=== PATIENT | female | born 1955 | race Caucasian/White ===

== ENCOUNTER 2023-06-09 13:02 | Outpatient (OUT) | payer MEDICARE, SELFPAY ==
[2023-06-09 13:36] LABS: Basophils Percent Auto 0.3 % (0.2-2.0); Eosinophils Absolute Auto 0.1 10^3/uL (0.0-0.7); Eosinophils Percent Auto 0.7 % (0.9-7.0); Hematocrit 34.6 % (36.0-48.0); Hemoglobin 10.5 g/dL (12.0-16.0); Immature Granulocytes Abs Auto 0.09 10^3/uL (0.00-0.03); Immature Granulocytes Pct Auto 0.9 % (0.0-0.5); Lymphocytes Absolute Auto 2.8 10^3/uL (1.2-3.8); Lymphocytes Percent Auto 27.6 % (20.5-60.0); Mean Corpuscular HGB Conc 30.3 g/dL (29.9-35.2); Mean Corpuscular Hemoglobin 26.6 pg (26.7-34.0); Mean Corpuscular Volume 87.8 fL (81.0-99.0); Mean Platelet Volume 9.6 fL (9.5-13.5); Monocytes Absolute Auto 0.6 10^3/uL (0.3-0.8); Monocytes Percent Auto 6.2 % (1.7-12.0); Neutrophils Absolute Auto 6.4 10^3/uL (1.4-6.5); Neutrophils Percent Auto 64.3 % (43.0-75.0); Platelet Count 370 10^3/uL (150-450); Red Blood Count 3.94 10^6/uL (4.20-5.40); Red Cell Distribution Width 16.3 % (11.0-15.0)
[2023-06-09 13:52] LABS: Microalbumin Urine Random 2.6 mg/dL (<=30.0)
[2023-06-09 13:56] LABS: Estimated Average Glucose 154 mg/dL
[2023-06-09 16:32] LABS: Anion Gap 11.9; Carbon Dioxide 29.2 mmol/L (21.0-32.0); Chloride 102 mmol/L (98-107); Glucose 106 mg/dL (74-106); Potassium 4.1 mmol/L (3.5-5.1); Sodium 139 mmol/L (136-145)
[2023-06-09 16:33] LABS: Alanine Aminotransferase 25 U/L (14-59); Albumin Globulin Ratio 1.1; Albumin Level 3.8 g/dL (3.4-5.0); Alkaline Phosphatase 41 U/L (46-116); Aspartate Amino Transferase 16 U/L (15-37); BUN Creatinine Ratio 20.6; Bilirubin Direct 0.1 mg/dL (0.0-0.2); Bilirubin Total 0.2 mg/dL (0.2-1.0); Calcium 9.2 mg/dL (8.5-10.1); Cholesterol 201 mg/dL (<=200); Estimated GFR (African America 49 (>=60); Estimated GFR (Non-African Ame 40 (>=60); Globulin 3.5 g/dL; Total Protein 7.3 g/dL (6.4-8.2); Triglycerides 515 mg/dL (<=150)
[2023-06-09 16:34] LABS: Chol HDL Ratio 6.1; HDL Cholesterol 33 mg/dL (40-60); LDL Cholesterol Direct 89 mg/dL
== END 2023-06-09 13:03 | disposition home or self-care (01) ==
LOC: LAB 13:06
PROVIDERS: PCP Family Medicine; Visit Provider Family Medicine
DX: E11.65 Type 2 diabetes mellitus with hyperglycemia (principal); I10 Essential (primary) hypertension; Z79.899 Other long term (current) drug therapy; E78.5 Hyperlipidemia, unspecified
CPT/HCPCS: 36415; 80048; 80061; 80076; 82043; 83036; 83721; 85025

== ENCOUNTER 2023-12-17 11:26 | Outpatient (OUT) | payer MEDICARE, SELFPAY ==
--- OUTSIDE RECORDS SUMMARY | 2023-12-17 11:46 | XMS_ITS | CCD ---
Author Organization [facility] Care Team Providers Care Wine Bottle Inspector Name Role Phone ANITHA, DR AMRIK Carrillo Admitting Unavailable NADERER, DR AMRIK Carrillo Attending Unavailable NADERER, DR AMRIK Carrillo Primary Care Unavailable NADERER, DR AMRIK Carrillo Consulting Unavailable JOHN, LAZARO Admitting Unavailable JOHN, LAZARO Attending Unavailable NADERER, DR AMRIK Carrillo Primary Care Unavailable AICHHOLZ, CERTIFIED CODING SPECIALIST LUC Admitting Unavailable AICHHOLZ, SHIV HOLLOWAYA Attending Unavailable NADERER, DR AMRIK Carrillo Primary Care Unavailable AICHHOLZ, CERTIFIED CODING SPECIALIST LUC Consulting Unavailable ZIEBER, DR SABRINA Chambers Consulting Unavailable AICHHOLZ, CERTIFIED CODING SPECIALIST LUC Admitting Unavailable AICHHOLZ, SHIV HOLLOWAYA Attending Unavailable NADERER, DR AMRIK Carrillo Primary Care Unavailable AICHHOLZ, SHIV LUC Consulting Unavailable JOHN, LAZARO Admitting Unavailable JOHN, LAZARO Attending Unavailable NADERER, DR AMRIK Carrillo Primary Care Unavailable JOHN, LAZARO Consulting Unavailable NADERER, DR AMRIK Carrillo Admitting Unavailable NADERER, DR AMRIK Carrillo Attending Unavailable NADERER, DR AMRIK Carrillo Primary Care Unavailable BENT, DR JULIO Presley Consulting Unavailable NADERER, DR AMRIK Carrillo Consulting Unavailable NADERER, AMRIK Attending Unavailable SILVER ESTRADA Attending Unavailable SILVER ESTRADA Referring Unavailable SILVER ESTRADA Attending Unavailable Problems Active Problems Problem Classification Problem Date Documented Da te Episodic/Chronic Diabetes mellitus with complications (4 sources) Type 2 diabetes mellitus with hyperglycemia; Translations: [TYPE 2 DM W/HYPERGLYCEMIA] Onset: 11-27-2021 Chronic Fracture of lower limb (5 sources) Displaced unspecified fracture of right great toe, initial encounter for closed fracture; Translations: [Nondisplaced fracture of proximal phalanx of right great toe, initial encounter for closed fracture] Onset: 11-19-2021 Episodic Other screening for suspected conditions (not mental disorders or infectious disease) (4 sources) Encounter for screening mammogram for malignant neoplasm of breast; Translations: [ENC SCR MAMMO MALIG NEOPLASM BREAST] Onset: 03-18-2022 Episodic Residual codes; unclassified (1 source) Family history of malignant neoplasm of other genital organs; Translations: [FAM HX MALIG NEOPLSM OTH GENIT ORGN] Onset: 03-23-2022 Episodic Past or Other Problems Problem Classification Problem Date Documented Da te Episodic/Chronic Deficiency and other anemia (1 source) Other iron deficiency anemias; Translations: [OTHER IRON DEFICIENCY ANEMIAS] Onset: 12-02-2021 Episodic Other connective tissue disease (4 sources) Pain in right foot; Translations: [PAIN IN RIGHT FOOT] Onset: 11-14-2021 Episodic Results Test Name Value Interpretation Reference Range Facil ity MG MAMM SCREEN 3D TOMASZ CADon 03-18-2022 MG MAMM SCREEN 3D TOMASZ CAD Patient: TONY LARA Exam Date: 03/18/2022 : 1955 Gender:F Ordering : DR AMRIK WELSH . Admission #: [id number] Family : Order #: [id number] CLICK HERE TO VIEW EXAM RADIOLOGY REPORT PROCEDURE: MAMMOGRAM SCREENING 3D BILATERAL CAD COMPARISON: MG MAMM TOMASZ SCRN W CAD DIG, 12/13/2014. MG MAMM SCREEN TOMASZ W CAD, 02/17/2017. INDICATIONS: Screening mammography Calculator Name NCI Breast Cancer Risk Assessment Tool 5 Year Breast Cancer Risk 1.60% Lifetime Breast Cancer Risk 5.40% Personal Breast Cancer No Personal Ovarian Cancer No Treatments None Family Cancers Mother with uterine cancer at age 44. LOCATION: [facility] BREAST COMPOSITION: Scattered areas fibroglandular density. FINDINGS: DIAGNOSTIC CATEGORY 1--NEGATIVE. NO CHANGE FROM COMPARISON ASSESSMENT. Scattered benign-appearing calcifications are present. RIGHT BREAST: No significant suspicious finding. LEFT BREAST: No significant suspicious finding. RECOMMENDATIONS: ROUTINE MAMMOGRAM AND CLINICAL EVALUATION IN 12 MONTHS. PLEASE NOTE: A NORMAL MAMMOGRAM DOES NOT EXCLUDE THE POSSIBILITY OF BREAST CANCER. A CLINICALLY SUSPICIOUS PALPABLE LUMP SHOULD BE BIOPSIED. Dictated by: Julio Fisher MD on 03/19/2022 at 07:21 Approved by: Julio Fisher MD on 03/19/2022 at 07:23 Normal [facility] CBC AUTO DIFFon 11-27-2021 BASO # 0.1 103/ul Normal 0.0-0.1 [facility] Comment on above: Performed By: #### C BC #### [facility] [address] [place] [address] Dr. Adrián Gregg Basophils/100 WBC (Bld) 0.9 % Normal 0.2-2.0 [facility] Comment on above: Performed By: #### C BC #### [facility] [address] [place] [address] Dr. Adrián Gregg EO # 0.1 103/ul Normal 0.0-0.7 [facility] Comment on above: Performed By: #### C BC #### [facility] [address] [place] [address] Dr. Adrián Gregg Eosinophils/100 WBC (Bld) 0.9 % Normal 0.9-7.0 [facility] Comment on above: Performed By: #### C BC #### [facility] [address] [place] [address] Dr. Adrián Gregg Erythrocyte distribution width (RBC) [Ratio] 17.5 % Critically high 11.0-15.0 [facility] Comment on above: Performed By: #### C BC #### [facility] [address] [place] [address] Dr. Adrián Gregg Hematocrit (Bld) [Volume fraction] 31.9 % Critically low 36.0-48.0 [facility] Comment on above: Performed By: #### C BC #### [facility] [address] [place] [address] Dr. Adrián Gregg Hemoglobin (Bld) [Mass/Vol] 9.5 g/dL Critically low 12.0-16.0 [facility] Comment on above: Performed By: #### C BC #### [facility] [address] [place] [address] Dr. Adrián Gregg IG # 0.02 10e3/ul Normal 0.00-0.03 [facility] Comment on above: Performed By: #### C BC #### [facility] [address] [place] [address] Dr. Adrián Gregg IG % 0.3 % Normal 0.0-0.5 [facility] Comment on above: Performed By: #### C BC #### [facility] [address] [place] [address] Dr. Adrián Gregg LYMPH # 1.7 103/ul Normal 1.2-3.8 [facility] Comment on above: Performed By: #### C BC #### [facility] [address] [place] [address] Dr. Adrián Gregg Lymphocytes/100 WBC (Bld) 24.2 % Normal 20.5-60.0 [facility] Comment on above: Performed By: #### C BC #### [facility] [address] [place] [address] Dr. Adrián Gregg MANUAL DIFF REQ NO Normal [facility] Comment on above: Performed By: #### C BC #### [facility] [address] [place] [address] Dr. Adrián Gregg MCH (RBC) [Entitic mass] 23.6 pg Critically low 26.7-34.0 [facility] Comment on above: Performed By: #### C BC #### [facility] [address] [place] [address] Dr. Adrián Gregg MCHC (RBC) [Mass/Vol] 29.8 g/dL Critically low 29.9-35.2 [facility] Comment on above: Performed By: #### C BC #### [facility] [address] [place] [address] Dr. Adrián Gregg MCV (RBC) [Entitic vol] 79.4 fL Critically low 81.0-99.0 [facility] Comment on above: Performed By: #### C BC #### [facility] [address] [place] [address] Dr. Adrián Gregg MONO # 0.4 103/ul Normal 0.3-0.8 [facility] Comment on above: Performed By: #### C BC #### [facility] [address] [place] [address] Dr. Adrián Gregg Monocytes/100 WBC (Bld) 5.1 % Normal 1.7-12.0 [facility] Comment on above: Performed By: #### C BC #### [facility] [address] [place] [address] Dr. Adrián Gregg NEUT # 4.7 103/ul Normal 1.4-6.5 [facility] Comment on above: Performed By: #### C BC #### [facility] [address] [address] [address] Adrián Gregg Neutrophils/100 WBC (Bld) 68.6 % Normal 43.0-75.0 [facility] Comment on above: Performed By: #### C BC #### [facility] [address] [place] [address] Dr. Adrián Gregg Platelet mean volume (Bld) [Entitic vol] 10.4 fL Normal 9.5-13.5 [facility] Comment on above: Performed By: #### C BC #### [facility] [address] [place] [address] Dr. Adrián Gregg PLT 358 103/ul Normal 150-450 [facility] Comment on above: Performed By: #### C BC #### [facility] [address] [address] [address] Adrián Gregg RBC 4.02 106/ul Critically low 4.20-5.40 [facility] Comment on above: Performed By: #### C BC #### [facility] [address] [place] [address] Dr. Adrián Gregg WBC 6.8 103/ul Normal 4.0-11.0 [facility] Comment on above: Performed By: #### C BC #### [facility] [address] [place] [address] Dr. Adrián Gregg FERRITINon 11-27-2021 Ferritin [Mass/Vol] 32.0 ng/mL Normal 8.0-252.0 [facility] Comment on above: Performed By: #### F ERR, IRON #### [facility] [address] [place] [address] Dr. Adrián Gregg GLYCOHEMOGLOBIN A1Con 2021 ADA RECOMMENDATION SEE BELOW Normal [facility] Comment on above: Result Comment: ADA RECOMMENDED LIMIT 4.0 - 6.0 ADA THERAPEUTIC TARGET < 7.0 ACTION SUGGESTED > 7.0 Performed By: #### A 1C ####[facility] [address] [id number]. Adrián Gregg Glucose [Mass/Vol] 151 mg/dL Normal [facility] Comment on above: Performed By: #### A 1C ####[facility] [address] [id number] Gregg HbA1c (Bld) [Mass fraction] 6.9 % Critically high 4.5-6.2 [facility] Comment on above: Performed By: #### A 1C ####[facility] [address] [id number]. Adrián Gregg IRONon 11-27-2021 Iron [Mass/Vol] 31.0 ug/dL Critically low 50.0-170.0 [facility] Comment on above: Performed By: #### F ERR, IRON #### [facility] [address] [address] [address] Adrián Gregg LIPID PROFILEon 11-27-2021 CHOL-HDL RATIO NORM SEE BELOW Normal [facility] Comment on above: Result Comment: 3.3 - 4.4 LOW RISK 4.4 - 7.1 AVERAGE RISK 7.1 - 11.0 MODERATE RISK >11.0 HIGH RISK Performed By: #### C MP, LIPID #### [facility] [address] [address] [address] Adrián Gregg Cholesterol [Mass/Vol] 157 mg/dL Normal <=200 [facility] Comment on above: Performed By: #### C MP, LIPID #### [facility] [address] [address] [address] Adrián Gregg Cholesterol in HDL [Mass/Vol] 24 mg/dL Critically low 40-60 [facility] Comment on above: Performed By: #### C MP, LIPID #### [facility] [address] [address] [address] Adrián Gregg Cholesterol in LDL [Mass/Vol] 58.8 mg/dL Normal [facility] Comment on above: Performed By: #### C MP, LIPID #### [facility] [id number] Adrián Gregg Cholesterol.total/Cho lesterol in HDL [Mass ratio] 6.5 {ratio} Normal [facility] Comment on above: Performed By: #### C MP, LIPID #### [facility] [address] [address] [address] Adrián Gregg HDL NORMAL > or = 60 mg/dl - LOW CARDIOVASCULAR RISK <40 mg/dl - HIGH CARDIOVASCULAR RISK Normal [facility] Comment on above: Performed By: #### C MP, LIPID #### [facility] [address] [address] [address] Adrián Gregg LDL CALC NORMAL SEE BELOW Normal [facility] Comment on above: Result Comment: <100 mg/dl OPTIMAL 100 - 129 mg/dl NEAR OR ABOVE OPTIMAL 130 - 159 mg/dl BORDERLINE HIGH 160 - 189 mg/dl HIGH >190 mg/dl VERY HIGH Performed By: #### C MP, LIPID #### [facility] [address] [address] [address] Adrián Gregg Triglyceride [Mass/Vol] 371 mg/dL Critically high <=150 [facility] Comment on above: Performed By: #### C MP, LIPID #### [facility] [address] [place], [place] [address] Dr. Adrián Gregg VLDL CALC 74.2 mg/dL Normal [facility] Comment on above: Performed By: #### C MP, LIPID #### [facility] [id number] Adrián Gregg MICROALBUMIN, RAND URon 11-09 mALB 9.7 mg/L Normal <=30.0 [facility] Comment on above: Performed By: #### M ALBR ####[facility] [address] [place], [place] [address]SrDr. Adrián Gregg PROF 14(COMP METB)on 022 Albumin [Mass/Vol] 3.8 g/dL Normal 3.4-5.[address] [facility] Comment on above: Performed By: #### C MP, LIPID #### [facility] [address] [address] [address] Adrián Gregg Albumin/Globulin [Mass ratio] 1.2 {ratio} Normal [facility] Comment on above: Performed By: #### C MP, LIPID #### [facility] [address] [address] [address] Adrián Gregg ALP [Catalytic activity/Vol] 47 U/L Normal 46-116 [facility] Comment on above: Performed By: #### C MP, LIPID #### [facility] [address] [address] [address] Adrián Gregg ALT [Catalytic activity/Vol] 17 U/L Normal 14-59 [facility] Comment on above: Performed By: #### C MP, LIPID #### [facility] [address] [address] [address] Adrián Gregg Anion gap [Moles/Vol] 12.3 mmol/L Normal [facility] Comment on above: Performed By: #### C MP, LIPID #### [facility] [address] [address] [address] Adrián Gregg AST [Catalytic activity/Vol] 17 U/L Normal 15-37 [facility] Comment on above: Performed By: #### C MP, LIPID #### [facility] [address] [address] [address] Adrián Gregg Bilirubin [Mass/Vol] 0.3 mg/dL Normal 0.2-1.0 [facility] Comment on above: Performed By: #### C MP, LIPID #### [facility] [address] [address] [address] Adrián Gregg Calcium [Mass/Vol] 9.1 mg/dL Normal 8.5-10.[address] [facility] Comment on above: Performed By: #### C MP, LIPID #### [facility] [address] [address] [address] Adrián Gregg Chloride [Moles/Vol] 107 mmol/L Normal 98-107 [facility] Comment on above: Performed By: #### C MP, LIPID #### [facility] [address] [address] [address] Adrián Gregg CO2 [Moles/Vol] 26.7 mmol/L Normal 21.0-32.0 [facility] Comment on above: Performed By: #### C MP, LIPID #### [facility] [address] [address] [address] Adrián Gregg Creatinine [Mass/Vol] 1.09 mg/dL Critically high 0.55-1.02 [facility] Comment on above: Performed By: #### C MP, LIPID #### [facility] [address] [address] [address] Adrián Gregg EGFR-AF MACANESE >60 Normal >=60 [facility] Comment on above: Performed By: #### C MP, LIPID #### [facility] [address] [address] [address] Adrián Gregg EGFR-NON AF MACANESE 50 mL/min/1.73m2 Critically low >=60 [facility] Comment on above: Performed By: #### C MP, LIPID #### [facility] [address] [address] [address] Adrián Gregg Globulin (S) [Mass/Vol] 3.1 g/dL Normal [facility] Comment on above: Performed By: #### C MP, LIPID #### [facility] [address] [address] [address] Adrián Gregg Glucose [Mass/Vol] 113 mg/dL Critically high 74-106 T [facility] Comment on above: Performed By: #### C MP, LIPID #### [facility] [address] [address] [address] Adrián Gregg Potassium [Moles/Vol] 4.0 mmol/L Normal 3.5-5.1 [facility] Comment on above: Performed By: #### C MP, LIPID #### [facility] [address] [address] [address] Adrián Gregg Protein [Mass/Vol] 6.9 g/dL Normal 6.4-8.[address] [facility] Comment on above: Performed By: #### C MP, LIPID #### [facility] [address] [address] [address] Adrián Gregg Sodium [Moles/Vol] 142 mmol/L Normal 136-[address] [facility] Comment on above: Performed By: #### C MP, LIPID #### [facility] [address] [address] [address] Adrián Gregg Urea nitrogen [Mass/Vol] 13.0 mg/dL Normal 7.0-18.0 [facility] Comment on above: Performed By: #### C MP, LIPID #### [facility] [address] [address] [address] Adrián Gregg Urea nitrogen/Creatinine [Mass ratio] 11.9 mg/mg Normal [facility] Comment on above: Performed By: #### C MP, LIPID #### [facility] [address] [address] [address] Adrián Gregg UA RANDOM W/MICROSCOPICon BACTERIA TRACE Abnormal NONE SEEN [facility] Comment on above: Performed By: #### U AMIC ####[facility] [address] [address]DrOliva Gregg Bilirubin Ql (U) Negative Normal NEGATIVE [facility] Comment on above: Performed By: #### U AMIC ####[facility] [address] [id number] Gregg CAST NONE SEEN Normal NONE SEEN [facility] Comment on above: Performed By: #### U AMIC ####[facility] [address] [address]Dr. Adrián Gregg Clarity (U) CLEAR Normal CLEAR [facility] Comment on above: Performed By: #### U AMIC ####[facility] [address] [address]DrOliva Gregg Color (U) LT. YELLOW Normal YELLOW [facility] Comment on above: Performed By: #### U AMIC ####[facility] [address] [address]DrOliva Gregg Crystals LM Nom (Urine sed) NONE SEEN Normal NONE SEEN [facility] Comment on above: Performed By: #### U AMIC ####[facility] [address] [address]Dr. Adrián Gregg Epithelial cells LM Ql (Urine sed) MODERATE Abnormal NONE SEEN /RARE [facility] Comment on above: Performed By: #### U AMIC ####[facility] [address] [address]Dr. Adrián Gregg Glucose Ql (U) Negative Normal NEGATIVE [facility] Comment on above: Performed By: #### U AMIC ####[facility] [address] [address]Dr. Adrián Gregg Hemoglobin Ql (U) LARGE Abnormal NEGATIVE [facility] Comment on above: Performed By: #### U AMIC ####[facility] [address] [place], [place] [address]Dr. Adrián Gregg Ketones Ql (U) Negative Normal NEGATIVE [facility] Comment on above: Performed By: #### U AMIC ####[facility] [address] [place], [place] [address]Dr. Adrián Gregg LEUKOCYTES SMALL Abnormal NEGATIVE [facility] Comment on above: Performed By: #### U AMIC ####[facility] [address] [address]Dr. Adrián Gregg MUCOUS NONE SEEN Normal NONE SEEN [facility] Comment on above: Performed By: #### U AMIC ####[facility] [address] [address]Dr. Adrián Gregg Nitrite Ql (U) Negative Normal NEGATIVE [facility] Comment on above: Performed By: #### U AMIC ####[facility] [address] [address]Dr. Adrián Gregg pH (U) 5.5 [pH] Normal 5-9 [facility] Comment on above: Performed By: #### U AMIC ####[facility] [address] [place], [place] [address]Dr. Adrián Gregg RBC 20-50 Abnormal 0-2 [facility] Comment on above: Performed By: #### U AMIC ####[facility] [address] [id number] Gregg SPEC GRAVITY 1.025 Normal 1.005-<=1.025 [facility] Comment on above: Performed By: #### U AMIC ####[facility] [address] [id number]. Adrián Gregg UA PROTEIN TRACE Normal NEGATIVE/ TRACE [facility] Comment on above: Performed By: #### U AMIC ####[facility] [address] [id number]. Adrián Gregg Urobilinogen Qn (U) 0.2 {Licha'U}/dL Normal 0.2 - 1. 0 [facility] Comment on above: Performed By: #### U AMIC ####[facility] [address] [address]DrOliva Gregg WBC 2-5 Abnormal NONE SEEN [facility] Comment on above: Performed By: #### U AMIC ####[facility] [address] [address]Dr. Adrián Gregg GLYCOHEMOGLOBIN A1Con 2021 ADA RECOMMENDATION ADA THERAPEUTIC TARGET 6.0 - 7.0 ACTION SUGGESTED > 7.0 Normal [facility] Comment on above: Performed By: #### A 1C #### [facility] [address] [address] [address] Adrián Gregg Glucose [Mass/Vol] 151 mg/dL Normal [facility] Comment on above: Performed By: #### A 1C #### [facility] [address] [address] [address] Adrián Gregg HbA1c (Bld) [Mass fraction] 6.9 % Critically high <=6.0 [facility] Comment on above: Performed By: #### A 1C #### [facility] [address] [address] [address] Adrián Gregg MICROALBUMIN, RAND URon - mALB 3.8 mg/L Normal <=30.0 [facility] Comment on above: Performed By: #### M ALBR #### [facility] [address] [place], [place] [address] Dr. Adrián Gregg Encounters Encounter Date Encounter Type Care Provider Facility Start: 10-15-2023 End: 10-15-2023 ambulatory SILVER ESTRADA Not Available Start: 07-06-2023 End: 07-06-2023 ambulatory SILVER ESTRADA Not Available Start: 06-02-2023 End: 06-02-2023 ambulatory AMRIK WELSH Not Available Start: 03-18-2022 End: 03-19-[address] AMRIK WELSH Facility:[facility] Start: 01-21-2022 ambulatory LAZARO LOPEZ Facilit y:[facility] Start: 12-24-2021 End: 12-25-2021 ambulatory LAZARO LOPEZ Facility:[facility] Start: 11-27-2021 End: 11-28-2021 ambulatory SHIV MONTOYA Facility:[facility] Start: 11-14-2021 End: 11-15-2021 ambulatory SHIV MONTOYA Facility:[facility] Start: 05-29-2021 End: 05-30-[address] AMRIK WELSH Facility:[facility] Payers Date Payer Category Payer Unknown [id number] 1955 Unknown [id number] 2..84 [id number] 1955 Unknown [id number] ..[id number] 1955 Unknown [id number] 2..84 0.1.125037.3.579.2.593 1953 Unknown [id number] 2..84 0.1.309870.3.579.2.593 1953 Unknown [id number] ..[id number] 0.1.601630.3.579.2.593 1953 Unknown [id number] 2..84 0.1.200099.3.579.2.593 1953 Unknown [id number] 2.16.84 0.1.188450.3.579.2.1259 1953 Unknown [id number] 2.16.84 0.1.181502.3.579.2.1259 1953 Unknown [id number] 2.16.84 0.1.287990.3.579.2.1259 1955 Unknown [id number] 2.16.84 [id number] Clinical Note 12-25-2021 Note Date & Type Note Facility 12-25-2021 Note PROCEDURE: XR FOOT R T MIN 3 VIEWS HISTORY: Pain in right foot ; Follow-up first toe fracture COMPARISON: XR foot right 11/14/2021 FINDINGS: BONES:Partial healing of small proximal medial corner fracture of the first proximal phalanx. Increased sclerosis and partial osseous healing of a fracture involving the distal end of the first proximal phalanx with intra-articular extension and slight lateral displacement of a portion of the distal articular surface since prior study. SOFT TISSUES:No visible soft tissue swelling. EFFUSION:None visible. OTHER: Negative. IMPRESSION: 1. Ongoing bone healing of a proximal and distal fracture involving the first toe proximal phalanx. The distal fracture involves the articular surface where there is incomplete bone healing and a small cleft. Follow-up recommended. Electronically authenticated by: SABRINA WAYNE Date: 2021-12-25 09:48 [facility] Clinical Note 11-15-2021 Note Date & Type Note Facility 11-15-2021 Note PROCEDURE: XR FOOT R T MIN 3 VIEWS HISTORY: Pain in right foot and bruising after falling COMPARISON: None. FINDINGS: BONES:Small nondisplaced corner fracture at medial base of first proximal phalanx. SOFT TISSUES:No visible soft tissue swelling. EFFUSION:None visible. OTHER: Negative. IMPRESSION: 1. Small, nondisplaced corner fracture of first proximal phalanx. Electronically authenticated by: SABRINA WAYNE Date: 2021-11-15 08:18 [facility] Summary Purpose Family History No Family History Records FoundNo Family History Records Found Advance Directives No Advanced Directives Records FoundNo Advanced Directives Records Found Additional Source Comments INFORMATION SOURCE (unrecogn ized section and content) DATE CREATED AUTHOR 03/23/2022 [facility] DATE CREATED AUTHOR AUTHOR'S MORENO ROMERO 10/16/2023 [facility] EPIC FOR RECORDS PERTAINING TO PATIENTS WHO ARE OR HAVE BEEN ENROLLED IN A CHEMICAL DEPENDENCY/SUBSTANCEABUSE PROGRAM, SOME INFORMATION MAY BE OMITTED. This clinical summary was aggregated from multiple sources. Caution should be exercised in using it in the provision of clinical care. This summary normalizes information from multiple sources, and as a consequence, information in this document may materially change the coding, format and clinical context of patient data. In addition, data may be omitted in some cases. CLINICAL DECISIONS SHOULD BE BASED ON THE PRIMARY CLINICAL RECORDS. [facility] [employer] provides no warranty or guarantee of the accuracy or completeness of information in this document.
--- NOTE | 2023-12-17 11:50 | MM_ITS ---
Patient Name: TONY LARA MR#: [id number] : 1955 Exam Date: 12/17/2023 Ordering Doctor: DR Aamir Orona . RADIOLOGY REPORT PROCEDURE: MM TOMOSYNTHESIS SCREENING BI COMPARISON: MG MAMM SCREEN 3D TOMASZ CAD, 03/18/2022. INDICATIONS: Screening Calculator Name NCI Breast Cancer Risk Assessment Tool 5 Year Breast Cancer Risk 1.70% Lifetime Breast Cancer Risk 4.90% Personal Breast Cancer No Personal Ovarian Cancer No Treatments None Family Cancers Mother with uterine cancer at age 44. LOCATION: [facility] BREAST COMPOSITION: There are scattered areas of fibroglandular density. FINDINGS: DIAGNOSTIC CATEGORY 2--BENIGN FINDING: Scattered benign-appearing calcifications are present. RIGHT BREAST: No significant suspicious finding. LEFT BREAST: No significant suspicious finding. RECOMMENDATIONS: ROUTINE MAMMOGRAM AND CLINICAL EVALUATION IN 12 MONTHS. PLEASE NOTE: A NORMAL MAMMOGRAM DOES NOT EXCLUDE THE POSSIBILITY OF BREAST CANCER. A CLINICALLY SUSPICIOUS PALPABLE LUMP SHOULD BE BIOPSIED. Dictated by: Shar Fisher MD on 12/17/2023 at 12:41 Approved by: Shar Fisher MD on 12/17/2023 at 12:42
== END 2023-12-17 11:27 | disposition home or self-care (01) ==
LOC: MAMMO 11:26
PROVIDERS: PCP Family Medicine; Visit Provider Family Medicine
DX: Z12.31 Encounter for screening mammogram for malignant neoplasm of breast (principal); Z80.8 Family history of malignant neoplasm of other organs or systems
CPT/HCPCS: 77063; 77067